=== PATIENT | female | born 1935 | race Caucasian/White ===

== ENCOUNTER 2018-08-25 11:49 | Emergency (ER) | payer MEDICARE, OTHER ==
[~2018-08-25] VITALS: Ht 162.6 cm; Wt 66.7 kg
[~2018-08-25 11:49] MED LIST: ALBU90OI6 INH; ALLO100 PO; ASCO1ER; ASPI81EC; ASPI81EC PO; ATOR40TA PO; CALCA400CH PO; CARV3.125 PO; CEFD300 PO; CEPH500 PO; CHOL10002 PO; COLE625 PO; CONEST.625; CRANBERRY; Coenzyme Q10100 M1 PO; Cranberry300 MG PO; FISH1000 PO; FLUSAL2505 INH; FOLI1; FURO40 PO; GLIM2; GLIM2 PO; GLUCHON; GLUCHON PO; HYDACE5 PO; HYDCHL25; HYDR1TAB94 PO; HYOS.375ER; LEVO750 PO; LEVSOD100 PO; LEVSOD50 PO; LEVSOD88 PO; LOSA25 PO; LOVA40 PO; MENTANX; METANX CAPSULE1 EACH PO; METRO; MOEX15; MOEX15 PO; MULVITMINF; MULVITMINF PO; NORT10 PO; OMEP20ER; POLY500; POTCHL10ER PO; POTCHL20ER; PRAV10; PRIM50 PO; PROG100; PROP160ER PO; PROP60; RXHYDACE PO; THYR60; TIOT18; TOCO400; TRAM50; UBID10 PO; VENL37.5ER PO; VENL75ER PO; Vitamin C100 M1 PO; WARF2 PO; WARF5 PO; WARF6 PO; WARF7.5 PO; [UNRECOGNIZED DRUG - OTHER]
[2018-08-25] MEDS ORDERED: Norco 5-325 Ta1 EACH PO (13:09)
== END 2018-08-25 14:35 | disposition home or self-care (01) ==
LOC: ER 11:49
DX: M17.11 Unilateral primary osteoarthritis, right knee (principal); Z88.5 Allergy status to narcotic agent; Z88.8 Allergy status to other drugs, medicaments and biological substances; Z79.899 Other long term (current) drug therapy; Z79.01 Long term (current) use of anticoagulants; I10 Essential (primary) hypertension; E11.9 Type 2 diabetes mellitus without complications; E03.9 Hypothyroidism, unspecified
CPT/HCPCS: 73562-RT

== ENCOUNTER 2018-11-10 16:42 | Emergency (ER) | payer MEDICARE, OTHER ==
[~2018-11-10] VITALS: Ht 162.6 cm; Wt 65.3 kg
[~2018-11-10 16:42] MED LIST changes: +Norco 5-325 Ta1 EACH PO
[2018-11-10 18:01] LABS: BASOPHILS ABSOLUTE AUTO 0.07 K/mm3 (0.00-0.23); BASOPHILS PERCENT AUTO 1 % (0-2); EOSINOPHILS ABSOLUTE AUTO 0.14 K/mm3 (0.00-0.68); EOSINOPHILS PERCENT AUTO 2 % (0-6); Hematocrit 43.1 % (33.0-51.0); Hemoglobin 12.8 g/dL (11.5-16.0); IMMATURE GRAN ABSOLUTE AUTO 0.03 K/mm3 (0.00-0.10); IMMATURE GRAN PERCENT AUTO 0 % (0-1); LYMPHOCYTES ABSOLUTE AUTO 2.22 K/mm3 (0.84-5.20); LYMPHOCYTES PERCENT AUTO 24 % (21-46); MONOCYTES ABSOLUTE AUTO 1.07 K/mm3 (0.16-1.47); MONOCYTES PERCENT AUTO 11 % (4-13); Mean Corpuscular HGB 28.3 pg (26.0-34.0); Mean Corpuscular HGB Conc 29.7 g/dL (31.5-36.5); Mean Corpuscular Volume 95 fL (80-100); Mean Platelet Volume 10.2 fL (9.1-12.4); NEUTROPHILS ABSOLUTE AUTO 5.85 K/mm3 (1.96-9.15); NEUTROPHILS PERCENT AUTO 62 % (41-73); NRBC ABSOLUTE 0.02 K/mm3 (0.00-0.02); NRBC Auto 0.2 /100 WBC (0.0-0.2); Platelet Count 267 K/mm3 (150-400); RDW Coefficient Variation 15.9 % (11.7-14.2); RDW Standard Deviation 55.9 fL (35.1-46.3); Red Blood Cell Count 4.53 M/mm3 (3.80-5.20); White Blood Cell Count 9.38 K/mm3 (4.00-11.30)
[2018-11-10 18:05] LABS: Albumin, Blood 3.3 g/dL (3.4-5.0); Albumin/Globulin Ratio 0.7 (0.8-1.8); Bilirubin, Total 0.4 mg/dL (0.1-1.0); Bun/Creatinine Ratio 29.5 (12.0-20.0); Calcium, Blood 8.5 mg/dL (8.5-10.1); Creatinine, Blood 1.46 mg/dL (0.40-1.00); Globulin, Blood 4.8 g/dL (2.2-4.0); Potassium, Blood 4.7 mmol/L (3.5-5.5); Total Protein, Blood 8.1 g/dL (6.4-8.2)
[2018-11-10 19:20] LABS: Source, Urine Catheter
[2018-11-10 19:45] LABS: Blood, Urine 1+ (Neg); Glucose Qualitative, Urine Neg (Neg); Ketones, Urine 1+ (Neg); Leukocyte Esterase, Urine 3+ (Neg); Nitrite, Urine Neg (Neg); Protein, Urine 2+ (Neg); Urobilinogen, Urine NORM (Normal)
[2018-11-10 19:48] LABS: Appearance, Urine Hazy (Clear); Color, Urine Yellow (P-Yellow)
[2018-11-10 19:49] LABS: Bilirubin, Urine 1+ (Neg)
[2018-11-10 19:53] LABS: Red Blood Cells, Urine 0-2 /hpf (0-2); White Blood Cells, Urine 25-50 /hpf (0-5)
[2018-11-10 19:54] LABS: Bacteria Many /hpf; Renal Epithelial Rare /hpf (0-Rare); Squamous Epithelial Cells Rare /hpf (Few)
[2018-11-11] MEDS ORDERED: CALCIUM PO (07:56)
[2018-11-11] MEDS ORDERED: FURO40 PO (07:57)
[2018-11-11] MEDS ORDERED: Inderal40 MG PO (07:59)
[2018-11-11] MEDS ORDERED: Venlafaxine HC150 MG PO (08:00)
[2018-11-11] MEDS ORDERED: VITAMIN C PO (08:01)
[2018-11-11] MEDS ORDERED: VITAMIN D32000 UNIT PO (08:01)
== END 2018-11-10 20:59 | disposition home or self-care (01) ==
LOC: ER 16:42
PROVIDERS: Physician Assistant
DX: N39.0 Urinary tract infection, site not specified (principal); E86.0 Dehydration; I12.9 Hypertensive chronic kidney disease with stage 1 through stage 4 chronic kidney disease, or unspecified chronic kidney disease; E11.22 Type 2 diabetes mellitus with diabetic chronic kidney disease; N18.9 Chronic kidney disease, unspecified; E03.9 Hypothyroidism, unspecified; Z79.899 Other long term (current) drug therapy; Z79.01 Long term (current) use of anticoagulants
CPT/HCPCS: 36415; 80053; 81001; 85025; 93005; 93010; 96360; 99283-25; J7030

== ENCOUNTER 2018-11-11 07:02 | Inpatient (IN) | payer MEDICARE, OTHER ==
[~2018-11-11] VITALS: Ht 162.6 cm; Wt 76.0 kg
[2018-11-11 07:29] LABS: BASOPHILS ABSOLUTE AUTO 0.05 K/mm3 (0.00-0.23); BASOPHILS PERCENT AUTO 0 % (0-2); EOSINOPHILS ABSOLUTE AUTO 0.04 K/mm3 (0.00-0.68); EOSINOPHILS PERCENT AUTO 0 % (0-6); Hematocrit 40.1 % (33.0-51.0); Hemoglobin 11.8 g/dL (11.5-16.0); IMMATURE GRAN ABSOLUTE AUTO 0.07 K/mm3 (0.00-0.10); IMMATURE GRAN PERCENT AUTO 1 % (0-1); LYMPHOCYTES ABSOLUTE AUTO 1.25 K/mm3 (0.84-5.20); LYMPHOCYTES PERCENT AUTO 10 % (21-46); MONOCYTES ABSOLUTE AUTO 1.29 K/mm3 (0.16-1.47); MONOCYTES PERCENT AUTO 10 % (4-13); Mean Corpuscular HGB 28.6 pg (26.0-34.0); Mean Corpuscular HGB Conc 29.4 g/dL (31.5-36.5); Mean Corpuscular Volume 97 fL (80-100); Mean Platelet Volume 10.3 fL (9.1-12.4); NEUTROPHILS ABSOLUTE AUTO 9.75 K/mm3 (1.96-9.15); NEUTROPHILS PERCENT AUTO 78 % (41-73); Platelet Count 242 K/mm3 (150-400); RDW Coefficient Variation 15.9 % (11.7-14.2); RDW Standard Deviation 56.4 fL (35.1-46.3); Red Blood Cell Count 4.13 M/mm3 (3.80-5.20); White Blood Cell Count 12.45 K/mm3 (4.00-11.30)
[2018-11-11 07:46] LABS: Albumin/Globulin Ratio 0.7 (0.8-1.8); Bilirubin, Total 0.3 mg/dL (0.1-1.0); Bun/Creatinine Ratio 32.3 (12.0-20.0); Creatinine, Blood 1.33 mg/dL (0.40-1.00); Globulin, Blood 4.5 g/dL (2.2-4.0); Potassium, Blood 4.7 mmol/L (3.5-5.5); Total Protein, Blood 7.5 g/dL (6.4-8.2); Troponin I 0.03 ng/mL (0.000-0.040)
[2018-11-11] MEDS ORDERED: CALCIUM PO (07:56)
[2018-11-11] MEDS ORDERED: FURO40 PO (07:57)
[2018-11-11] MEDS ORDERED: Inderal40 MG PO (07:59)
[2018-11-11] MEDS ORDERED: Venlafaxine HC150 MG PO (08:00)
[2018-11-11] MEDS ORDERED: VITAMIN D32000 UNIT PO (08:01)
[2018-11-11] MEDS ORDERED: VITAMIN C PO (08:01)
--- NOTE | 2018-11-11 14:54 | NUR ---
ARRIVAL TO UNIT PT ARRIVED TO UNIT AT APROX 1400. TRANSFERED TO BED USING SLIDER SHEET. PT REPORTS PAIN TOLERABLE AT REST-2/10. DR NICOLE SAW PATIENT IN ER.
[2018-11-11 19:06] LABS: Source, Urine Clean Catch
[2018-11-11 19:11] LABS: Appearance, Urine Clear (Clear); Bilirubin, Urine Neg (Neg); Blood, Urine 2+ (Neg); Color, Urine Yellow (P-Yellow); Glucose Qualitative, Urine Neg (Neg); Ketones, Urine Neg (Neg); Leukocyte Esterase, Urine 2+ (Neg); Nitrite, Urine Neg (Neg); Protein, Urine 2+ (Neg); Urobilinogen, Urine NORM (Normal)
[2018-11-11 19:19] LABS: Bacteria Mod /hpf; Squamous Epithelial Cells Few /hpf (Few); White Blood Cells, Urine 50-100 /hpf (0-5)
[2018-11-12 04:34] LABS: BASOPHILS ABSOLUTE AUTO 0.06 K/mm3 (0.00-0.23); BASOPHILS PERCENT AUTO 1 % (0-2); EOSINOPHILS ABSOLUTE AUTO 0.05 K/mm3 (0.00-0.68); EOSINOPHILS PERCENT AUTO 1 % (0-6); Hematocrit 34.4 % (33.0-51.0); Hemoglobin 10.7 g/dL (11.5-16.0); IMMATURE GRAN ABSOLUTE AUTO 0.04 K/mm3 (0.00-0.10); IMMATURE GRAN PERCENT AUTO 0 % (0-1); LYMPHOCYTES ABSOLUTE AUTO 1.57 K/mm3 (0.84-5.20); LYMPHOCYTES PERCENT AUTO 17 % (21-46); MONOCYTES ABSOLUTE AUTO 1.09 K/mm3 (0.16-1.47); MONOCYTES PERCENT AUTO 12 % (4-13); Mean Corpuscular HGB 28.5 pg (26.0-34.0); Mean Corpuscular HGB Conc 31.1 g/dL (31.5-36.5); Mean Platelet Volume 10.4 fL (9.1-12.4); NEUTROPHILS ABSOLUTE AUTO 6.34 K/mm3 (1.96-9.15); NEUTROPHILS PERCENT AUTO 69 % (41-73); Platelet Count 224 K/mm3 (150-400); RDW Coefficient Variation 15.6 % (11.7-14.2); RDW Standard Deviation 52.7 fL (35.1-46.3); Red Blood Cell Count 3.76 M/mm3 (3.80-5.20); White Blood Cell Count 9.15 K/mm3 (4.00-11.30)
[2018-11-12 04:36] LABS: Mean Corpuscular Volume 92 fL (80-100)
[2018-11-12 04:52] LABS: Bun/Creatinine Ratio 31.6 (12.0-20.0); Creatinine, Blood 1.17 mg/dL (0.40-1.00); Potassium, Blood 4.5 mmol/L (3.5-5.5)
--- NOTE | 2018-11-12 05:35 | NUR ---
SHIFT SUMMARY PT A&O X4 T/O SHIFT. PAIN MANGEMENT DISCUSSED MULTIPLE TIMES; PT DECLINES PAIN MEDICATION, STS NO PAIN AT REST; STS SHE IS AWARE MEDICATION IS ORDERED AND SHE CAN ASK FOR IT WHEN SHE WANTS IT. PPPX4; EXT COOL BILAT; SENSATION INTACT; PT DENIES N/T IN EXT. PT CALLS FOR BEDPAN ASSIST. PT REPOSITIONED TOLERATED. PROTECTIVE MULTILAYER FOAM DRESSING TO L HEEL. SCD'S TO BLE'S. CALL LIGHT IN REACH. BED ALARM AND SIDE RAILS X3 FOR SAFETY. WCTM UNTIL REPORT TO DAY SHIFT RN.
--- NOTE | 2018-11-12 10:00 | NUR ---
DR CHARLES BEEN HERE RECENTLY. DISCUSSED PT'S STATUS AND MEDS. FAMILY IN ROOM.
--- NOTE | 2018-11-12 10:58 | NUR ---
DR NICOLE HERE TO SEE PT.
--- NOTE | 2018-11-12 11:42 | NUR ---
HEEL PROTECTOR DRESSINGS AND FOAM HEEL PROTECTORS IN PLACE PER DR COREY LUNSFORD.
--- NOTE | 2018-11-12 12:54 | NUR ---
PT ENC TO EAT LUNCH. PT CONT TO REFUSE LUNCH.
--- NOTE | 2018-11-12 16:31 | NUR ---
SHIFT SUMMARY PT BEEN RESTING MOST OF DAY PER PT REQ. PT BEEN ENCOURAGED MULT TIMES TO SIT UP IN CHAIR. PT ATE BREAKFEAST BUT REFUSED LUNCH. FAMILY BEEN IN/OUT OF ROOM. VINH MASON BEEN TO SEE PT. BED ALARM IN PLACE. HEEL PROTECTORS IN PLACE. PT HAD BM TODAY. PT WORKED WITH THERAPY.
--- NOTE | 2018-11-12 17:26 | NUR ---
REPORT GIVEN TO OTHER RN Yonis WHO IS TAKING OVER CARE AT THIS TIME. ALARM IN PLACE. PT ENC TO EAT DINNER BUT CONT TO REFUSE.
[2018-11-13 06:30] LABS: Bun/Creatinine Ratio 26.4 (12.0-20.0); Calcium, Blood 8.2 mg/dL (8.5-10.1); Creatinine, Blood 1.74 mg/dL (0.40-1.00)
--- NOTE | 2018-11-13 08:43 | NUR ---
SHIFT SUMMARY PT A&O X4 T/O SHIFT. S/P GLF WITH L HIP FX; PPPX4. PT SLEPT T/O SHIFT. PT STS THIS AM SHE "FEELS SO MUCH BETTER THAN YESTERDAY." PAIN IN L HIP MANGED PER EMAR. PROTECTIVE MEPILEX TO L HEEL; PT REPOSITIONED TOLERATED; SKIN INTACT. RA; DENIES SOB, MOIST COUGH, FINE CRACKLES IN BILAT LUNGS. SCD'S TO BLE'S. CALL LIGHT IN REACH. REPORT GIVEN TO DAY SHIFT RN. APPROX. 0648; DR. GONZALEZ NOTIFIED OF PT RENAL HX, IV GTT OF LR AT 75; FINE CRACKLES IN LUNGS, RA, RR IN 20'S, PT DENIES SOB, SCANT URINE OUTPUT, AND BLADDER SCAN OF 90 ML THIS AM. NO NEW ORDERS RECIEVED.
--- NOTE | 2018-11-13 09:25 | NUR ---
DR CHARLES RECENTLY HERE. DISCUSSED PT'S STATUS. PT HAD STUDY THIS AM. PT REPORTED TO BE COUGHING AFTER DRIKING MILK. PT TO BE NPO. REPORTS WILL ORDERS SPEECH EVAL.
--- NOTE | 2018-11-13 09:29 | NUR ---
DR CHARLES REPORTED TO NOT GIVE PO PILLS AT THIS TIME.
--- NOTE | 2018-11-13 12:53 | NUR ---
SPEECH THERAPY HERE, WORKED WITH PT.
--- NOTE | 2018-11-13 18:28 | NUR ---
SHIFT SUMMARY PT WORKED WITH THERAPY EARLIER TODAY. BEEN WANTING TO REST SINCE THEN. PT ENCOURAGED TO INCREASE PO INTAKE, SIT UP IN CHAIR. PT REFUSING, "JUST WANT TO SLEEP". PT BEEN REPOSITIONED MULT TIMES. ALARM IN PLACE. PT VOIDED BETTER TODAY. FAMILY IN/OUT OF ROOM TODAY.
[2018-11-14 06:12] LABS: BASOPHILS ABSOLUTE AUTO 0.02 K/mm3 (0.00-0.23); BASOPHILS PERCENT AUTO 0 % (0-2); EOSINOPHILS ABSOLUTE AUTO 0.01 K/mm3 (0.00-0.68); EOSINOPHILS PERCENT AUTO 0 % (0-6); Hematocrit 35.8 % (33.0-51.0); IMMATURE GRAN ABSOLUTE AUTO 0.08 K/mm3 (0.00-0.10); IMMATURE GRAN PERCENT AUTO 1 % (0-1); LYMPHOCYTES PERCENT AUTO 12 % (21-46); MONOCYTES ABSOLUTE AUTO 1.36 K/mm3 (0.16-1.47); MONOCYTES PERCENT AUTO 11 % (4-13); Mean Corpuscular HGB 28.8 pg (26.0-34.0); Mean Corpuscular HGB Conc 30.7 g/dL (31.5-36.5); Mean Corpuscular Volume 94 fL (80-100); Mean Platelet Volume 11.3 fL (9.1-12.4); NEUTROPHILS ABSOLUTE AUTO 9.35 K/mm3 (1.96-9.15); NEUTROPHILS PERCENT AUTO 76 % (41-73); NRBC ABSOLUTE 0.08 K/mm3 (0.00-0.02); NRBC Auto 0.6 /100 WBC (0.0-0.2); Platelet Count 173 K/mm3 (150-400); RDW Coefficient Variation 17.2 % (11.7-14.2); RDW Standard Deviation 56.2 fL (35.1-46.3); Red Blood Cell Count 3.82 M/mm3 (3.80-5.20); White Blood Cell Count 12.32 K/mm3 (4.00-11.30)
[2018-11-14 07:15] LABS: Bun/Creatinine Ratio 28.4 (12.0-20.0); Calcium, Blood 8.3 mg/dL (8.5-10.1); Creatinine, Blood 2.11 mg/dL (0.40-1.00); Magnesium, Blood 2.4 mg/dL (1.6-2.4); Potassium, Blood 5.7 mmol/L (3.5-5.5)
--- NOTE | 2018-11-14 09:17 | NUR ---
DR. CHARLES NOTIFIED THAT PT HAS BEEN LETHARGIC THIS AM AND IS COOL TO THE TOUCH. PT IS SOMEWHAT DIAPHORETIC, PALE, AND WEAK. VSS AT THIS TIME EXCEPT FOR INCREASED RR RATE. DR. LOPEZ WAS CONSULTED FOR WORSENING KIDNEY FUNCTION. WILL CONTINUE TO MONITOR.
--- NOTE | 2018-11-14 11:47 | NUR ---
LAB VALUES/PT CONDITION LACTIC ACID 4.9, TROPONIN 0.092. AT THIS TIME PT DOES NOT APPEAR TO BE CLINICALLY CHANGED. SHE REMAINS PALE, CLAMMY AND COOL TO THE TOUCH. CAP REFIL IS DELAYED BUT REMAINS <3 SECONDS. FEET APPEAR TO BE MOTTLED. PT REMAINS LETHARGIC BUT STILL RESPONDS TO VERBAL STIMULI. EKG SAID "ST ABNORMALITY", RHYTHM IS NSR. VSS, BP 152/57, RR 26, HR 74, TEMP 98.8, O2 SATURATION 99%.
[2018-11-14 12:01] LABS: PCO2 Arterial 24.1 mmHg (35-45); PO2 Arterial 70.7 mmHg (80-100); pH Blood Arterial 7.39 (7.35-7.45)
[2018-11-14 12:20] LABS: BASOPHILS ABSOLUTE AUTO 0.03 K/mm3 (0.00-0.23); BASOPHILS PERCENT AUTO 0 % (0-2); EOSINOPHILS PERCENT AUTO 0 % (0-6); Hemoglobin 11.6 g/dL (11.5-16.0); IMMATURE GRAN ABSOLUTE AUTO 0.06 K/mm3 (0.00-0.10); IMMATURE GRAN PERCENT AUTO 0 % (0-1); LYMPHOCYTES ABSOLUTE AUTO 1.46 K/mm3 (0.84-5.20); LYMPHOCYTES PERCENT AUTO 11 % (21-46); MONOCYTES ABSOLUTE AUTO 1.61 K/mm3 (0.16-1.47); MONOCYTES PERCENT AUTO 12 % (4-13); Mean Corpuscular HGB 28.6 pg (26.0-34.0); Mean Corpuscular HGB Conc 30.5 g/dL (31.5-36.5); Mean Corpuscular Volume 94 fL (80-100); Mean Platelet Volume 10.8 fL (9.1-12.4); NEUTROPHILS ABSOLUTE AUTO 10.64 K/mm3 (1.96-9.15); NEUTROPHILS PERCENT AUTO 77 % (41-73); NRBC ABSOLUTE 0.08 K/mm3 (0.00-0.02); NRBC Auto 0.6 /100 WBC (0.0-0.2); Platelet Count 232 K/mm3 (150-400); RDW Coefficient Variation 16.3 % (11.7-14.2); RDW Standard Deviation 56.2 fL (35.1-46.3); Red Blood Cell Count 4.05 M/mm3 (3.80-5.20)
[2018-11-14 12:32] LABS: Bun/Creatinine Ratio 29.4 (12.0-20.0); Calcium, Blood 8.4 mg/dL (8.5-10.1); Creatinine, Blood 2.21 mg/dL (0.40-1.00); Potassium, Blood 5.9 mmol/L (3.5-5.5)
--- NOTE | 2018-11-14 15:09 | NUR ---
PT ARRIVES TO PCU VIA BED FROM SURGICAL FLOOR. ACCOMPANIED BY CADE PATTEN AND SURGICAL FLOOR FAMILY SPECIALIST. PT RESPONDS TO VERBAL STIMULI WITH A MOAN. APPEARS PAINFULL. HANDS AND ARMS SKIN IS CLAMMY AND COLD. FEET ARE COLD AND MOTTLED. PT RESPS ARE 36 TO 45 PER MINUTE. HER SAT IS 94% ON ROOM AIR. SHE IS OPEN MOUTH BREATHING. TONGUE IS DRY AND FURROWED. BRUISES TO RIGHT DORSAL HAND AND TO LEFT HIP ARE NOTED. WITH SKIN RED AND MIKE TO TOUCH ON COCCYX. PE IS MEDICATED WITH 25 FENTANYL FOR PAIN ON ARRIVAL TO PCU AFTER BEING MOVED AND APPEARING TO HAVE INCREASED PAIN WHEN TRANSFERRED FROM SURGICAL BED TO PCU BED. AT THIS TIME APPEARS MORE COMFORTABLE AND IS RESTING COMFORTABLY, SAT MONITOR REMAINS IN PLACE.
--- NOTE | 2018-11-14 15:21 | NUR ---
PT TRANSFERRED TO PCU AT 1352. REPORT GIVEN TO VAMSI PATTEN. PT'S DAUGHTER NOTIFIED OF TRANSFER TO PCU.
--- NOTE | 2018-11-14 18:08 | NUR ---
END OF SHIFT SUMMARY; PT TRANSFERRED FROM SURGICAL FLOOR AFTER BECOMING INCREASINGLY SOMNOLENT AND HARD TO ROUSE. HER SKIN FEELS COLD AND CLAMMY AND HER FEET APPEAR MOTTLED ON ARRIVAL TO PCU. SHE MOANS IN PAIN WHEN TRANSFERRED TO PCU BED AND APPEARS TO BE GRITTING HER TEETH. 25MCG FENTANYL IS ADMIN FOR PAIN AND PATIENT SLOWS HER BREATHING SLIGHTLY AND APPEARS MORE COMFORTABLE. SHE IS TURNED EVERY TWO HOURS. PT HAS LEFT HIP FRACTURE THAT IS MEDICALLY MANAGED. SHE HAS REPEAT LACTIC ACIC AT 1800 ORDERED. ORAL CARE IS PROVIDED TO PATIENT ON ARRIVAL TO PCU AND SHE IS PROPPED UP ON PILLOWS. TO PREVENT SKIN BREAKDOWN. FAMILY LEFT THIS AM PER REPORT AND DO NOT PLAN ON RETURNING. PALLIATIVE CARE CONSULT IS ORDERED BY . WILL CONTINUE TO MONITOR THIS PATIENT UNTIL REPORT AND HAND OFF TO NOC SHIFT RN.
[2018-11-14 18:52] LABS: Creatinine, Blood 2.26 mg/dL (0.40-1.00); Potassium, Blood 5.1 mmol/L (3.5-5.5)
--- NOTE | 2018-11-15 02:16 | NUR ---
ASSUMED CARE AT 1900 AND STARTING TO AROUSE TO EXPRESS NEEDS . REPORTS A LT HIP PAIN AND AWARE OF HER SURROUNDINGS AND NAME. AND DAUGHTERS NAMES. REORIENTED AND EXPRESSES UNDERSTANDING. STILL COOL MOTTLING OF FEET. NEURO CHECK WNL PER COMMAND FOLLOWING AND WEAK EXTREMITY MOVEMENT. CARLOS. KEEPS EYES CLOSED W/ WEAKNESS. AND WILL OPEN W/ REQUESTS. PAIN WAS ADDRESSED W/ IV PAIN MED. NO PO MED PER [employer] PRECAUTIONS . GOOD MOUTH CARE AND SEVERE PARCHED TONGUE. MOISTENED FREQ/ SOME REST POST PAIN MED AND IN BTW REPOSITIONING. VERY PAINFUL TO REPOSITION AND THEN FALLS OFF TO SLEEP/ GOOD EFFORT TO COUGH AND DEEP BREATHE REQUEST. VERY THICK YELLOW MUCUS SX FROM BACK OF THROAT BRINGING UP PARTIALLY PER SELF.
[2018-11-15 04:14] LABS: BASOPHILS ABSOLUTE AUTO 0.04 K/mm3 (0.00-0.23); BASOPHILS PERCENT AUTO 0 % (0-2); EOSINOPHILS ABSOLUTE AUTO 0.08 K/mm3 (0.00-0.68); EOSINOPHILS PERCENT AUTO 1 % (0-6); Hematocrit 33.7 % (33.0-51.0); Hemoglobin 10.4 g/dL (11.5-16.0); IMMATURE GRAN ABSOLUTE AUTO 0.05 K/mm3 (0.00-0.10); IMMATURE GRAN PERCENT AUTO 0 % (0-1); LYMPHOCYTES ABSOLUTE AUTO 1.22 K/mm3 (0.84-5.20); LYMPHOCYTES PERCENT AUTO 10 % (21-46); MONOCYTES ABSOLUTE AUTO 1.64 K/mm3 (0.16-1.47); MONOCYTES PERCENT AUTO 13 % (4-13); Mean Corpuscular HGB 28.2 pg (26.0-34.0); Mean Corpuscular HGB Conc 30.9 g/dL (31.5-36.5); Mean Corpuscular Volume 91 fL (80-100); Mean Platelet Volume 10.2 fL (9.1-12.4); NEUTROPHILS ABSOLUTE AUTO 9.18 K/mm3 (1.96-9.15); NEUTROPHILS PERCENT AUTO 75 % (41-73); NRBC ABSOLUTE 0.07 K/mm3 (0.00-0.02); NRBC Auto 0.6 /100 WBC (0.0-0.2); Platelet Count 181 K/mm3 (150-400); RDW Coefficient Variation 16.3 % (11.7-14.2); RDW Standard Deviation 53.3 fL (35.1-46.3); Red Blood Cell Count 3.69 M/mm3 (3.80-5.20); White Blood Cell Count 12.21 K/mm3 (4.00-11.30)
[2018-11-15 04:35] LABS: Albumin, Blood 2.6 g/dL (3.4-5.0); Anion Gap 12 mmol/L (6-16); Blood Urea Nitrogen 72 mg/dL (8-24); Bun/Creatinine Ratio 36.5 (12.0-20.0); CO2, Blood 23 mmol/L (21-32); Calcium, Blood 7.7 mg/dL (8.5-10.1); Chloride, Blood 107 mmol/L (98-108); Creatinine, Blood 1.97 mg/dL (0.40-1.00); Glomerular Filtration Rate 26 (60-); Glucose, Blood 164 mg/dL (70-99); Magnesium, Blood 2.2 mg/dL (1.6-2.4); Phosphorus, Blood 4.4 mg/dL (2.5-4.9); Potassium, Blood 4.6 mmol/L (3.5-5.5); Sodium, Blood 142 mmol/L (136-145)
--- NOTE | 2018-11-15 06:00 | NUR ---
NO ACUTE CHANGE FROM ABOVE. PAIN MED W/ NOTED RELIEF AND SOME SOUND SLEEP UNTIL TURNED. MENTATION CLEAR BUT KEEPS EYES CLOSED AND MUMBLES W/ MUCH WEAKNESS. FREQ MOUTH CARE AND MOISTENING/
--- NOTE | 2018-11-15 13:46 | NUR ---
Initial Visit: Palliative Care Consult for care goals and comfort measures. Pt is A&O X 3 and appears lethargic and is unable to verbalize correct year. She reports the year is 1982. Pt experiences intermittent confusion during visit. Pt's daughter Tiesha is present. Pt's daughter inquires about comfort care. Educated Tiesha and Pt on comfort measures and Pt reports not feeling ready to make a decision at this time and wants to work with physical therapy. Instructed Pt and daughter that palliative care will remain available. Tiesha expresses concerns about placement for Pt if Pt does not work with physical therapy. Instructed Tiesha that social work will be notified of concerns. Spoke with Pt's nurse Mariella and she reports the Pt is somnolent and may be due to pain medications. She reports dosage of pain medication may need to be adjusted in order for physical therapy to work with Pt. Spoke with case management and reported daughter's concerns. Plan to F/U on Pt's decsion for comfort care and will remain available.
--- NOTE | 2018-11-15 15:09 | NUR ---
Echocardiogram performed.
--- NOTE | 2018-11-15 18:11 | NUR ---
END OF SHIFT; PT VERY SOMNOLENT TODAY. DAUGHTER ABIDA HERE TODAY. PALLIATIVE CARE MET WITH DAUGHTER AND PATIENT. THEY ARE CONSIDERING COMFORT CARE. PT CONTINUES TO REFUSE TO WORK WITH PT/OT. EATING VERY LITTLE IF ANYTHING AT MEALS. BICARB DRIP INFUSING AT 50ML/HR AND D5NS INFUSING AT 50ML/HR. PER ORDER. PT MEDICATED X 2 TODAY FOR PAIN WITH FENTANYL ONCE AT 25MCG AND ONCE AT 12.5MCG FOR DECREASED LOC AFTER INITIAL FENTANYL DOSE. PT TURNED EVERY TWO HOURS TO PREVENT SKIN BREAKDOWN. ORAL CARE ON PATEINT TODAY BY THIS RN AND BY GAY [employer]. PT TOLERATES WELL. WILL CONTINUE TO MONITOR THIS PATIENT UNTIL REPORT AND HAND OFF TO NOC SHIFT RN.
[2018-11-16 04:21] LABS: BASOPHILS ABSOLUTE AUTO 0.02 K/mm3 (0.00-0.23); BASOPHILS PERCENT AUTO 0 % (0-2); EOSINOPHILS ABSOLUTE AUTO 0.07 K/mm3 (0.00-0.68); EOSINOPHILS PERCENT AUTO 1 % (0-6); Hematocrit 34.2 % (33.0-51.0); Hemoglobin 10.4 g/dL (11.5-16.0); IMMATURE GRAN ABSOLUTE AUTO 0.06 K/mm3 (0.00-0.10); IMMATURE GRAN PERCENT AUTO 1 % (0-1); LYMPHOCYTES ABSOLUTE AUTO 1.09 K/mm3 (0.84-5.20); LYMPHOCYTES PERCENT AUTO 9 % (21-46); MONOCYTES ABSOLUTE AUTO 1.54 K/mm3 (0.16-1.47); MONOCYTES PERCENT AUTO 13 % (4-13); Mean Corpuscular HGB 28.2 pg (26.0-34.0); Mean Corpuscular HGB Conc 30.4 g/dL (31.5-36.5); Mean Corpuscular Volume 93 fL (80-100); Mean Platelet Volume 10.9 fL (9.1-12.4); NEUTROPHILS ABSOLUTE AUTO 8.77 K/mm3 (1.96-9.15); NEUTROPHILS PERCENT AUTO 76 % (41-73); NRBC ABSOLUTE 0.09 K/mm3 (0.00-0.02); NRBC Auto 0.8 /100 WBC (0.0-0.2); Platelet Count 184 K/mm3 (150-400); RDW Coefficient Variation 16.6 % (11.7-14.2); RDW Standard Deviation 54.3 fL (35.1-46.3); Red Blood Cell Count 3.69 M/mm3 (3.80-5.20); White Blood Cell Count 11.55 K/mm3 (4.00-11.30)
[2018-11-16 04:46] LABS: Magnesium, Blood 2.4 mg/dL (1.6-2.4)
[2018-11-16 04:55] LABS: Albumin, Blood 2.5 g/dL (3.4-5.0); Anion Gap 11 mmol/L (6-16); Blood Urea Nitrogen 71 mg/dL (8-24); Bun/Creatinine Ratio 43.6 (12.0-20.0); CO2, Blood 26 mmol/L (21-32); Calcium, Blood 7.3 mg/dL (8.5-10.1); Chloride, Blood 106 mmol/L (98-108); Creatinine, Blood 1.63 mg/dL (0.40-1.00); Glomerular Filtration Rate 32 (60-); Glucose, Blood 173 mg/dL (70-99); Phosphorus, Blood 3.2 mg/dL (2.5-4.9); Sodium, Blood 143 mmol/L (136-145)
--- NOTE | 2018-11-16 05:28 | NUR ---
SHIFT SUMMARY- PT HAS REMAINED AOX4 THROUGHOUT SHIFT. VSS. PLEASANT AND COOPERATIVE WITH CARE. PT HAS BEEN ALERT THIS SHIFT, SITTING UP AND SPEAKING IN FULL, ORIENTED SENTENCES TO STAFF MEMBERS. PT REQUESTED A SNACK AND DRINK LAST NIGHT AND PROVIDED WITH SOFT FOOD AND THICKENED LIQUIDS FOR SAFETY- OVERALL TOLERATED WELL, COUGHED TWICE AFTER SWALLOWING INITIALLY, BUT ABLE TO TOLERATE BETTER WITH CHIN-TUCK METHOD. PT WAS ABLE TO TAKE PILLS IN SMALL BITES OF APPLESAUCE. MEDICATED MULTIPLE TIMES FOR PAIN LAST NIGHT THAT DECREASED WITH ORDERED MEDICATIONS- PT TOLERATED TURNING AND CHANGING BETTER WITH PAIN MEDICATIONS. NO OTHER CHANGES FROM INITIAL ASSESSMENT. WILL CONTINUE TO MONITOR AND REPORT TO ONCOMING SHIFT RN. BED IN LOW POSITION, CALL LIGHT IN REACH. BED ALARM SET FOR SAFETY.
--- NOTE | 2018-11-16 09:00 | NUR ---
PATIENT RESTING QUIETLY IN BED. NO COMPLAINTS. VSS. WILL CONTINUE TO MONITOR.
--- NOTE | 2018-11-16 12:19 | NUR ---
DR. JOSEPH IN TO SEE PATIENT. INFORMED THAT PATIENT CONTINUES TO BE EITHER AWAKE AND ORIENTED OR SOMNOLENT. INFORMED THAT PATIENT HAS HAD VERY MOIST, LOOSE, HARSH COUGH. ALSO INFORMED THAT PATIENT'S FEET HAVE BEEN COLD AND MOTTLED. NO ORDERS RECEIVED AT THIS TIME.
--- NOTE | 2018-11-16 14:44 | NUR ---
DAUGHTERS HERE TO VISIT PATIENT. UPDATED ON PATIENT'S CONDITION. INFORMED PALLIATIVE CARE NURSE, KENNY RANDALL, THAT DAUGHTER'S IN ROOM. HE STATED HE WILL BE IN TO SPEAK WITH THEM.
--- NOTE | 2018-11-16 16:23 | NUR ---
Pt visit this afternoon. Pt resting in bed and is lethargic. Pt's daughters Kathryn and Tiesha are present during visit. Kathryn's phone number ([phone]). Further discussion was made about comfort care and Pt and family have decided for comfort care. Pt is A&O X 4 during visit. Educated Pt and family on comfort care with V/U made by Pt and family. Family also requests the Pt be referred to hospice and would like her placed closer to family such as [place] or [place]. Spoke with Pt's nurse Rach and she is in agreement with plan. She request that keep fentanyl for breakthrough pain along with standard comfort medications. She also requests Pt be transferred to medical floor. Called and spoke with Dr Maurer and she reports that she will place the order and consider requests. Placed order for social services manager and hopsice referral.
--- NOTE | 2018-11-16 22:09 | NUR ---
ASSUMED CARE OF PATIENT AT APPROXIMATELY 1905 FROM HECTOR Duckworth RN. PATIENT LETHARGIC AT TIMES; ALERT AND ORIENTED TO SELF AND AT TIMES. PATIENT COMPLAINED OF PAIN IN LEFT HIP; MEDICATED PER EMAR; LIDOCAINE PLACED; RECENT FX; REPORTED NO SURGICAL INTERVENTIONS. FLUIDS SWITCHED FROM D51/2NS TO NS AT 100; PG NICK INFUSING. Q2H TURN; RED ON COCCYX; INCONTINENT; ATTENDS IN PLACE. BREATHING LABORED AT TIMES; R/R IN 20'S; COARSE L/S. PILLS WHOLE IN APPLESAUCE; NO STRAWS; ASPIRATION PRECAUTIONS; PATIENT NEEDS ASSISTANCE EATING. VSS. PATIENT CURRENTLY SLEEPING IN BED; CALL LIGHT IN REACH; BED IN LOWEST POSISTIO; BED ALARM ON; WILL CONTINUE TO MONITOR AND ASSESS UNTIL END OF SHIFT.
[2018-11-17 04:16] LABS: Hematocrit 36.1 % (33.0-51.0); Hemoglobin 10.6 g/dL (11.5-16.0)
[2018-11-17 05:22] LABS: Albumin, Blood 2.5 g/dL (3.4-5.0); Anion Gap 12 mmol/L (6-16); Blood Urea Nitrogen 82 mg/dL (8-24); Bun/Creatinine Ratio 42.5 (12.0-20.0); CHOL/HDL RATIO 5.4; CO2, Blood 25 mmol/L (21-32); CPK Creatine Kinase 140 U/L (26-193); Calcium, Blood 7.8 mg/dL (8.5-10.1); Chloride, Blood 110 mmol/L (98-108); Cholesterol 86 mg/dL (50-200); Creatinine, Blood 1.93 mg/dL (0.40-1.00); Glomerular Filtration Rate 26 (60-); Glucose, Blood 137 mg/dL (70-99); HDL Cholesterol 16 mg/dL (>39); Low Density Lipoprotein Chol 48 mg/dL (0-110); Magnesium, Blood 2.4 mg/dL (1.6-2.4); Potassium, Blood 4.4 mmol/L (3.5-5.5); Sodium, Blood 147 mmol/L (136-145); Triglycerides 111 mg/dL (30-160); Very Low Density Lipoprot Chol 22 mg/dL (6-32)
--- NOTE | 2018-11-17 06:18 | NUR ---
PATIENT SLEPT ABOUT TEN HOURS LAST NIGHT; REQUESTED JELLO LAST NIGHT; GRAPHOTYPE OPERATOR FED PATIENT ONE JELLO. PATIENT COMPLAINED OF PAIN IN HER LEFT HIP, KNEES AND BACK. MEDICATED PER EMAR BEFORE TURNINGS; PATIENT WEAK; UNABLE TO HOLD ARMS UP. FLUIDS CHANGED TWICE T/O NIGHT. INCONTINENT OF URINE MULTIPLE TIMES; ATTENDS IN PLACE. WILL CONTINUE TO MONITOR AND ASSESS UNTIL END OF SHIFT.
--- NOTE | 2018-11-17 08:00 | NUR ---
pt laying in bed with eyes closed. daughter in room. pt not really waking up for me, was able to get her v.s. family was feeding her breakfast and she became very course with labored breathing. registered sales assistant asked family to stop feeding until can speak with nurse. spoke with and requested another speech eval, this was ordered. pt responds with one word responses. states she is comfortable. mostly returns to sleep when left undisturbed. lungs are course t/o, resp even and mildly labored, has a wet harsh nonproductive cough, is currently on r/a, hrr, edema noted to b/l le, up to hips, legs are cool to touch, cap refill <3sec, vs stable, afebrile, iv site is power glide to vita, site is clear and patent, changed iv fluids to clinimix this am, btx4, abd round soft nontender, incont of urine, attends in place, skin c/w/d, not really moving ext. tami, call light in reach.
--- NOTE | 2018-11-17 09:53 | NUR ---
Pt visit this AM. Pt resting in bed with her eyes closed and appears comfortable at this time. Daughters Kathryn and Tiesha are present during visit. Kathryn reports speaking to Dr Maurer last night and this AM and is agreeable with Dr Maurer's plan. Instructed family this RN will be available. Spoke with Pt's nurse Meredith and she reports the Fentanyl is not beneficial for managing Pt's pain when repositioning her. Called and left a message with Dr Maurer requesting a change in current regimen for pain. Plan is to monitor Pt's pain management. Placement may need to be considered if Pt does not return to baseline. Will remain available.
--- NOTE | 2018-11-17 16:59 | NUR ---
PT REALLY UNCHANGED CONDITION T/O THE DAY. SLEEPS WHEN LEFT UNDISTURBED. INCONT OF URINE. CALL LIGHT IN REACH.
--- NOTE | 2018-11-17 17:00 | NUR ---
SPEECH SAW PT AND IS NPO AT THIS TIME.
--- NOTE | 2018-11-17 18:25 | NUR ---
pt has been sleeping most of the day, this evening went to reposition her, she said she was having some pain, gave 25 mch fentanyl, wich made her relax, daughter in room, call light in reach.
--- NOTE | 2018-11-17 20:00 | NUR ---
PT'S SKIN COLOR IS PALE. PT OPENS EYES WHEN SPOKEN TO. PT IS ALERT TO PERSON AND PLACE. PT SAYS PAIN WITH BP TO LEFT FA, OTHERWISE DENIES PAIN. PT HAS HYPOACTIVE BT'S - PT IS NPO, EXCEPT MEDS. PAS TO BLE - LEGS FLOATED ON A PILLOW WITH BOOTIES TO FEET. FENTANYL PATCH IN PLACE. CONTINUOUS BIOX ON - SATS WNL ON RA. ATTENDS IN PLACE - DRY. CLINIMIX INFUSING TO NICK IV SITE WITHOUT COMPLICATIONS. PT IS WEAK/DECONDITIONED. PT DRIFTS OFF BACK TO SLEEP DURING ASSESSMENT. CALL LIGHT WITHIN REACH. BED IN LOW POSITION.
[2018-11-18 04:37] LABS: Hemoglobin 10.4 g/dL (11.5-16.0)
[2018-11-18 05:02] LABS: Albumin, Blood 2.4 g/dL (3.4-5.0); Anion Gap 10 mmol/L (6-16); Blood Urea Nitrogen 94 mg/dL (8-24); Bun/Creatinine Ratio 58.4 (12.0-20.0); CO2, Blood 25 mmol/L (21-32); Calcium, Blood 8.1 mg/dL (8.5-10.1); Chloride, Blood 111 mmol/L (98-108); Creatinine, Blood 1.61 mg/dL (0.40-1.00); Glomerular Filtration Rate 32 (60-); Glucose, Blood 175 mg/dL (70-99); Magnesium, Blood 2.7 mg/dL (1.6-2.4); Phosphorus, Blood 3.6 mg/dL (2.5-4.9); Potassium, Blood 4.2 mmol/L (3.5-5.5); Sodium, Blood 146 mmol/L (136-145)
--- NOTE | 2018-11-18 06:36 | NUR ---
SHIFT SUMMARY - PT TOLERATED PO FLUIDS, NECTAR THICK, WITH CRUSHED MEDICATIONS IN HIGH SEMI FOWLERS POSITION AT THE BEGINNING OF THE SHIFT. HELD PO MEDS THIS AM, AFTER ATTEMPTING TO GET PT TO FOLLOW INSTRUCTIONS THIS AM - PT AWAKENS TO VERBAL COMMUNICATION - BUT THEN DRIFTED OFF BACK TO SLEEP. OTHERWISE, NO ACUTE CHANGES. PT HAS SLEPT THROUGHOUT MOST OF THE NIGHT, HAS AWOKEN EACH TIME TO VERBAL COMMUNICATION. PT HAS REPORTED OCCASIONAL BACK PAIN, AND LEFT ARM PAIN - BUT WITH REPOSITIONING, PT REPORTED RELIEF OF PAIN. PT DID NOT REPORT ANY LEFT HIP PAIN THROUGHOUT THE NIGHT. LEGS ELEVATED ON A PILLOW WITH PINK BOOTIES IN PLACE. BED IN LOW POSITION. CALL LIGHT WITHIN REACH - MUSIC ON PER PT REQUEST.
--- NOTE | 2018-11-18 09:34 | NUR ---
COMES TO ROOM TO ASSESS PT. VERBAL ORDER TO INSERT CATHETER FOR STRICT I AND O'S. 40MG LASIX IV X 1 NOW. CLINIMIX NOW AT 50ML/HR. PT VERY SOMNOLENT ROUSES TO VERBAL STIMULI BUT IMMEDIATELY RETURNS TO SLEEP LIKE STATE. NOTED THAT ARMS AND LEGS ARE EDEMATOUS AND EDEMA NOTED TO 2+ ON BLE AND 2 ON UPPER EXT.
--- NOTE | 2018-11-18 14:53 | NUR ---
PT'S COUGH IS BECOMING MORE FREQUENT THIS AFTERNOON, SOUNDS "BARKY" AT TIMES. PT MOANS AFTER COUGH OTHERWISE SHE IS SLEEPING AND APPEARS COMFORTABLE. BOTH DAUGHTERS HERE IN ROOM THIS AFTERNOON WEARING MASKS DUE TO HAVING BAD COUGHS. WILL CONTINUE TO MONITOR.
--- NOTE | 2018-11-18 18:20 | NUR ---
SHIFT SUMMARY; PT ARRIVED TO PERFECTO UNIT VERY SOMNOLENT, PT IS ABLE TO OPEN EYES AND GIVE SINGLE WORD WHEN CALLING NAME "PADILLA". PT ARRIVED WITH ENDWELLING MONZON WITH 600ML OUTPUT AT THIS TIME. PT IS NPO DUE TO ASPIRATION ON OTHER UNIT. PT MOANS A LOT, DENIED PAIN FOR SOMWTIME THIS AFTERNOON BUT MOANS BECAME MORE FREQUENT. PT WAS ABLE TO SAY "YES" TO HAVING PAIN ALONG WITH "YES" WHEN ASKED IF WOULD LIKE PAIN MEDICATION. PT WAS SLEEPING COMFORTABLE FOR SOMETIME AFTER PAIN MEDICATION. PT DID HAVE SLIGHT DRY COUGH WHEN FIRST ARRIVED BUT NOW COUGHING HAS INCREASED, BARKING LIKE SOUND, NON-PRODUCTIVE. PT DOES C/O CHEST WALL PAIN WHEN COUGHING. PT'S 2 DAUGHTERS HERE TODAY, BOTH WITH VERY BAD COUGHS, WEARING MASKS WHILE IN THE ROOM. PT IS BEING TURNED NEEDED DUE TO REDNESS ON COCCYX AREA, NO BREAKDOWN AT THIS TIME.
--- NOTE | 2018-11-19 05:01 | NUR ---
SHIFT SUMMARY PT ADMITTED FOR LEFT HIP FX. SHE IS NONSURGICAL AT THIS TIME R/T POOR OVERALL HEALTH STATUS AND COMORBIDITIES. SHE IS TTWB TO THE LEFT LEG BUT LIFT FOR TRANSFERS. PT HAS BEEN MAX ASSIST FOR TURNS OVERNIGHT. CLINIMIX RAN OVERNIGHT PER ORDERS. SINUS WITH PACS AT 83 AT TIME OF ASSESSMENT ON TELE. PT CONTINUES TO HAVE A COUGH BUT IT SOUNDS MORE MOIST THIS MORNING THAN IT DID LAST NIGHT. SHE IS SOMNOLENT, THOUGH AROUSABLE FOR QUESTIONS. MONZON IN PLACE, PATENT AND DRAINING. PT IS NPO, HIGH ASPIRATION RISK. WILL CTM UNTIL PASS TO NEXT SHIFT.
[2018-11-19 05:17] LABS: Hematocrit 35.5 % (33.0-51.0); Hemoglobin 10.4 g/dL (11.5-16.0)
[2018-11-19 06:06] LABS: Albumin, Blood 2.2 g/dL (3.4-5.0); Anion Gap 10 mmol/L (6-16); Blood Urea Nitrogen 99 mg/dL (8-24); Bun/Creatinine Ratio 68.3 (12.0-20.0); CO2, Blood 23 mmol/L (21-32); Calcium, Blood 7.9 mg/dL (8.5-10.1); Chloride, Blood 112 mmol/L (98-108); Creatinine, Blood 1.45 mg/dL (0.40-1.00); Glomerular Filtration Rate 37 (60-); Glucose, Blood 153 mg/dL (70-99); Magnesium, Blood 2.7 mg/dL (1.6-2.4); Phosphorus, Blood 3.9 mg/dL (2.5-4.9); Potassium, Blood 4.2 mmol/L (3.5-5.5); Sodium, Blood 145 mmol/L (136-145)
--- NOTE | 2018-11-19 16:52 | NUR ---
Pt visit this afternoon. Approached by Pt's daughters Kathryn and Tiesha and they express concern aobut plan for Pt and states there is concersation about comfort care. Instructed daughters this RN will research Dr stanley and report back. Called and spoke with Kathryn and explained no mention of comfort care from Dr Maurer's note or Dr Norton's note. Dr Norton's note suggest some improvement of kidney functions. Kathryn expresses concerns of what to do. Suggested to Kathryn to stay the coarse with Dr Maurer's plan and Dr Norton's plan. Suggested to Kathryn to evantually have a meeting with Pt's PCP to lay out an immediate plan, mid term plan, and longterm plan. Kathryn is in agreement. Order was placed for social work msw consult for possible placement. Spoke with Pt's nurse and she expresses concerns about Pt's recovery and her somnolence. She expresses concerns the Pt is experience failure to thrive. Nurse is in agreement with encouraging current plan and developing a bed bug exterminator plan. Visit with Pt after discussion and she is resting in bed with her eyes closed. She appears comfortable but lethargic. She arrouses enough to speak in 2 or 3 word sentences then drift back to sleep. She denies pain at this time and thanks this RN for visiting. Plan is for social work msw consult for possible placement. Will remain available.
--- NOTE | 2018-11-19 18:06 | NUR ---
PT STILL SOMNOLENT, ONLY RESPONDS TO WHEN SPOKEN TO. SLEEPS THROUGHOUT THE DAY. PT DOES NOT REPOSITION SELF. MEDS NOT GIVEN DUE TO ASPIRATION PREC. THERE IS DESCUSSION OF WHEATHER SHE WILL BE ON COMFORT CARE OR NOT FROM FAMILY. PT DOES NOT HAS A TERMINAL DIAGNOSIS SO COMFORT CARE IS NOT LIKELY. SS WILL BE IN TOMM. TO DISCUSS PLAN AND PLACEMENT. PT C/O PAIN WITH TURNS, MEDICATED PER EMAR. BODY VERY EDEMATOUS. MONZON IN PLACE AND PATENT. WILL CTM.
[2018-11-20 04:40] LABS: BASOPHILS ABSOLUTE AUTO 0.04 K/mm3 (0.00-0.23); BASOPHILS PERCENT AUTO 0 % (0-2); EOSINOPHILS ABSOLUTE AUTO 0.05 K/mm3 (0.00-0.68); EOSINOPHILS PERCENT AUTO 0 % (0-6); Hematocrit 37.2 % (33.0-51.0); IMMATURE GRAN ABSOLUTE AUTO 0.06 K/mm3 (0.00-0.10); IMMATURE GRAN PERCENT AUTO 0 % (0-1); LYMPHOCYTES ABSOLUTE AUTO 1.19 K/mm3 (0.84-5.20); LYMPHOCYTES PERCENT AUTO 9 % (21-46); MONOCYTES PERCENT AUTO 10 % (4-13); Mean Corpuscular HGB Conc 29.6 g/dL (31.5-36.5); Mean Corpuscular Volume 95 fL (80-100); Mean Platelet Volume 11.4 fL (9.1-12.4); NEUTROPHILS ABSOLUTE AUTO 11.18 K/mm3 (1.96-9.15); NEUTROPHILS PERCENT AUTO 80 % (41-73); NRBC ABSOLUTE 0.28 K/mm3 (0.00-0.02); Platelet Count 180 K/mm3 (150-400); RDW Coefficient Variation 17.5 % (11.7-14.2); RDW Standard Deviation 58.4 fL (35.1-46.3); Red Blood Cell Count 3.93 M/mm3 (3.80-5.20); White Blood Cell Count 13.92 K/mm3 (4.00-11.30)
[2018-11-20 04:56] LABS: Albumin, Blood 2.5 g/dL (3.4-5.0); Anion Gap 10 mmol/L (6-16); Blood Urea Nitrogen 108 mg/dL (8-24); Bun/Creatinine Ratio 76.6 (12.0-20.0); CO2, Blood 22 mmol/L (21-32); Calcium, Blood 8.1 mg/dL (8.5-10.1); Chloride, Blood 113 mmol/L (98-108); Creatinine, Blood 1.41 mg/dL (0.40-1.00); Glomerular Filtration Rate 38 (60-); Glucose, Blood 168 mg/dL (70-99); Magnesium, Blood 2.8 mg/dL (1.6-2.4); Phosphorus, Blood 4.2 mg/dL (2.5-4.9); Potassium, Blood 4.5 mmol/L (3.5-5.5); Sodium, Blood 145 mmol/L (136-145)
--- NOTE | 2018-11-20 07:28 | NUR ---
SUMMARY MEDICATED FOR PAIN THIS AM. MINIML VERBAL. WEAK.
--- NOTE | 2018-11-20 10:00 | NUR ---
Palliative Care visit. Assessed pt in her room. Respiratory rate 36-40/shallow. Pt did not wake to verbal or tactile stimuli but nonverbal indicators of pain noted in furrowing of brow, groaning in sleep. Reported to RN, who plans to medicate per eMAR for pain. Called & then met with Kathryn paiz, privately in conference room. Kathryn lives in [place] and has to return home in the next day or so. Her sister, Tiesha, lives in [place]. Kathryn feels her mother is not getting better, other than improved indicators for kidney function. Update on current status obtained from pt's RN and DR. Pt has aspirated and has pneumonia now. She is NPO and getting IV fluids and nutritional support. Per chencho, pt reluctantly agreeable to working with therapy but little progress being made due to pt's pain and profound weakness. Kathryn spoke with pt this am to clarify if she'd be willing to attempt rehab and pt said yes. She prefers [facility] where she has been previously. Pt's primarily and ultimately wants to return to [facility]. Family uncertain whether [facility] will accept pt back to facility with recent falls and now s/p R ORIF for fx R hip, even after a rehab stay. All of above discussed with Dr, RN & Opal Polisher. Return visit made to reassess after pain medications given. Pt appears much more comfortable and respiratory rate 20-24. Both daughters present and supportive of pt. ENcouraged them and thanked them for being present for their mom. They understand there is no definitive "terminal" diagnosis but feel their mom is failing. Comfort Care was discussed with today also. Pt's Daughter Kathryn works in Hospice as a high school social science teacher and understands Hospice rules/regs and criteria. We will continure to follow closely for s/s management support and advanced care planning.
--- NOTE | 2018-11-20 19:30 | NUR ---
SHIFT SUMMARY PT SLEPT MOST OF THIS SHIFT. WOKE AT TIMES, ORIENTED TO SELF. ANSWERS SOME QUESTIONS, UNABLE TO WORK WITH PT/OT, DID WORK WITH SPEECH THERAPY. MEDICATED FOR PAIN IN L HIP X'S 2 WITH 50MCG FENT IVP. PT HAD 9 BEAT RUN OF [facility] AT [facility] 1742- NOTIFIED, VSS AT THE TIME, NO NEW ORDERS. INCREASED URINE OUTPUT FOLLOWING ADMINISTRATION OF BUMEX ONE TIME DOSE.
[2018-11-21 05:14] LABS: Hematocrit 37.3 % (33.0-51.0); Hemoglobin 11.1 g/dL (11.5-16.0)
[2018-11-21 05:38] LABS: Albumin, Blood 2.7 g/dL (3.4-5.0); Anion Gap 10 mmol/L (6-16); Blood Urea Nitrogen 111 mg/dL (8-24); CO2, Blood 26 mmol/L (21-32); Calcium, Blood 8.1 mg/dL (8.5-10.1); Chloride, Blood 113 mmol/L (98-108); Glomerular Filtration Rate 35 (60-); Glucose, Blood 171 mg/dL (70-99); Magnesium, Blood 2.7 mg/dL (1.6-2.4); Phosphorus, Blood 4.3 mg/dL (2.5-4.9); Potassium, Blood 4.1 mmol/L (3.5-5.5); Sodium, Blood 149 mmol/L (136-145)
[2018-11-21 09:31] LABS: BASOPHILS ABSOLUTE AUTO 0.03 K/mm3 (0.00-0.23); BASOPHILS PERCENT AUTO 0 % (0-2); EOSINOPHILS ABSOLUTE AUTO 0.11 K/mm3 (0.00-0.68); EOSINOPHILS PERCENT AUTO 1 % (0-6); Hematocrit 38.1 % (33.0-51.0); Hemoglobin 11.1 g/dL (11.5-16.0); IMMATURE GRAN ABSOLUTE AUTO 0.11 K/mm3 (0.00-0.10); IMMATURE GRAN PERCENT AUTO 1 % (0-1); LYMPHOCYTES ABSOLUTE AUTO 1.54 K/mm3 (0.84-5.20); LYMPHOCYTES PERCENT AUTO 11 % (21-46); MONOCYTES ABSOLUTE AUTO 1.27 K/mm3 (0.16-1.47); MONOCYTES PERCENT AUTO 9 % (4-13); Mean Corpuscular HGB Conc 29.1 g/dL (31.5-36.5); Mean Corpuscular Volume 96 fL (80-100); Mean Platelet Volume 11.2 fL (9.1-12.4); NEUTROPHILS ABSOLUTE AUTO 11.17 K/mm3 (1.96-9.15); NEUTROPHILS PERCENT AUTO 79 % (41-73); NRBC ABSOLUTE 0.35 K/mm3 (0.00-0.02); NRBC Auto 2.5 /100 WBC (0.0-0.2); Platelet Count 180 K/mm3 (150-400); RDW Coefficient Variation 17.8 % (11.7-14.2); RDW Standard Deviation 59.9 fL (35.1-46.3); Red Blood Cell Count 3.96 M/mm3 (3.80-5.20); White Blood Cell Count 14.23 K/mm3 (4.00-11.30)
--- NOTE | 2018-11-21 11:30 | NUR ---
SUMMARY PT 1014, CHARGE NOAH PERES RN AND HOSPITALIST AT BEDSIDE ALONG WITH MYSELF AND TWO DAUGHTERS, SYLVESTER AND ABIDA. DAUGHTERS WERE LEFT ALONE WITH PT TO HAVE SOME TIME WITH THEIR MOTHER. 1130 - ONCE DAUGHTERS LEFT, I DISCONTINUED THE MONZON CATHETER (600 MLS URINE), FENTANYL PATCH REMOVED, LIDOCAINE PATCH REMOVED AND EXT DWELLING DC'D. THE DAUGHTERS SAID THEY WERE GOING TO PT'S APARTMENT TO LOCATE BURIAL PLAN.
== END 2018-11-21 10:15 | DRG 535 ==
LOC: ER 07:02 → SURS 07:03 → PCU 07:03 → SURS 12:23 → ER 12:23 → MEDS 12:23 → SURS 12:23 → MEDS 12:32 → SURS 12:32 → MEDS 13:59 → SURS 13:59 → PCU 11-14 14:47 → SURS 11-18 11:18
PROVIDERS: Internal Medicine; Internal Medicine Nephrology; Physician Assistant; ADMIT Internal Medicine
DX: S32.492A Other specified fracture of left acetabulum, initial encounter for closed fracture (principal); J69.0 Pneumonitis due to inhalation of food and vomit; G93.41 Metabolic encephalopathy; S32.82XA Multiple fractures of pelvis without disruption of pelvic ring, initial encounter for closed fracture; N17.9 Acute kidney failure, unspecified; W19.XXXA Unspecified fall, initial encounter; E03.9 Hypothyroidism, unspecified; E11.40 Type 2 diabetes mellitus with diabetic neuropathy, unspecified; E78.5 Hyperlipidemia, unspecified; I25.10 Atherosclerotic heart disease of native coronary artery without angina pectoris; Z86.711 Personal history of pulmonary embolism; I12.9 Hypertensive chronic kidney disease with stage 1 through stage 4 chronic kidney disease, or unspecified chronic kidney disease; E11.22 Type 2 diabetes mellitus with diabetic chronic kidney disease; N18.3 Chronic kidney disease, stage 3 (moderate); R62.7 Adult failure to thrive
CPT/HCPCS: 36415; 36600; 71045; 71250; 72192; 73502; 74176; 76770; 80048; 80053; 80061; 80069; 81001; 82550; 82803; 82947; 83605; 83735; 84443; 84484; 85014; 85018; 85025; 85379; 87086; 92526; 92610; 93005; 93010; 93306; 94640; 94760; 94762; 96360; 96361; 97110; 97162; 97166; 97530; 97535; 99285-25; C1751; G8978; G8979; G8987; G8988; G8996; G8997; G8998; J0295; J0696; J1650; J1940; J3010; J7030; J7042; J7070; J7120; P9041; P9612